=== PATIENT | female | born 1995 | race Caucasian/White ===

== ENCOUNTER 2016-02-22 04:36 | Inpatient (IN) ==
[~2016-02-22 04:36] MED LIST: Famotidine 20 MG/2 ML VIAL IVP PRN; Metoclopramide 10 MG/2 ML VIAL IVP PRN; Naloxone 0.4 MG/ML INJ IVP PRN
[2016-02-22] MEDS ORDERED: Penicillin G Potassium 5,000,000 UNIT in D5% in Water (Mini-Bag+) 100 ML IVPB ONE (04:38)
[2016-02-22] MEDS ORDERED: Ringers Solution, Lactated 1,000 ML ONE (04:41)
[2016-02-22] MEDS ORDERED: *HR* Nalbuphine 20 MG/ML AMPUL IVP PRN (04:41)
[2016-02-22] MEDS ORDERED: Ringers Solution, Lactated 1,000 ML IVC SCH (04:45)
[2016-02-22 04:46] LABS: Basophils # 0.1 K/mcL (0.0-0.2); Basophils % 0.3 %; Eosinophils # 0.2 K/mcL (0.0-0.6); Eosinophils % 1.1 %; Hematocrit 38.2 % (35.3-44.9); Hemoglobin 12.7 g/dL (11.5-15.4); Immature Granulocytes % 0.5 % (0-4); Lymphocytes # 2.5 K/mcL (0.6-4.6); Mean Corpuscular HGB Conc 33.2 g/dL (31.6-35.5); Mean Corpuscular Hemoglobin 27.8 pg (28.0-33.3); Mean Corpuscular Volume 83.6 fL (83.0-100.0); Mean Platelet Volume 10.8 fL (9.4-12.4); Monocytes # 0.6 K/mcL (0.0-1.3); Monocytes % 3.3 %; Neutrophils # 14.6 K/mcL (1.6-8.9); Platelet Count 265 K/mcL (140-400); Red Blood Count 4.57 M/mcL (3.82-4.97); Red Cell Distribution Width 13.8 % (11.5-14.5); Segmented Neutrophils % 80.8 %
[2016-02-22] MEDS ORDERED: Bupivacaine-MPF 0.25% 10 ML VIAL EP ONE (05:23)
[2016-02-22] MEDS ORDERED: *HR* FentaNYL (PF) 100 MCG/2 ML VIAL EP ONE (05:23)
[2016-02-22] MEDS ORDERED: *HR* FentaNYL (PF) 100 MCG/2 ML VIAL ONE (05:25)
[2016-02-22] MEDS ORDERED: Epidural Premix (fent/bupiv) 110 ML EP ONE (05:25)
[2016-02-22] MEDS ORDERED: Bupivacaine-MPF 0.25% 10 ML VIAL ONE (05:25)
[2016-02-22] MEDS ORDERED: Epidural Premix (fent/bupiv) 110 ML EP SCH (05:30)
--- NOTE | 2016-02-22 05:58 | Anesthesia Evaluation PreOp ---
Date of Encounter: 02/22/16 Time of Encounter: 05:25 - Past History Planned Operation: labor epidural Cardiac History: HTN (with ) Pulmonary History: Smoker (2ppd) CONFIGURATION TECHNICIAN History: Denies Any Significant HX Other Medical History: Other (pbesity) Anesthesia History: No Prior Anesthetic Complications, Past Anesthesia (lap kavita) : Yes Alcohol Use: none Drug use: none Medications and Allergies No Known Home Drugs 02/22/16 [History] Allergies No Known Allergies Allergy (Verified 02/22/16 03:52) - Meds/Allergy Pre-op Review Medications Reviewed: Yes Allergies Reviewed: Yes Beta Blockers on Current Med List: No Anesthesia Results - Labs 02/22/16 04:30 Anesthesia Exam 3 Vital Signs Time 0525 0530 0535 0540 0545 0550 BP 126/74 132/92 129/66 140/79 135/60 135/69 Pulse 79 80 66 81 71 67 FHTs 130 130 130 130 130 130 Height: 5'9" Weight: 130 NPO (# of Hours): 6 Pain Scale: 10 Pain Scale Used: Numeric (1 - 10) - HEENT Pupil (Motor): Pupils equal Mallampati: III Teeth: Normal Oral Opening: Greater than 3 - CONFIGURATION TECHNICIAN LOC: Oriented CONFIGURATION TECHNICIAN Motor: Normal RUE, Normal LUE, Normal RLE, Normal LLE, Normal Face CONFIGURATION TECHNICIAN Sensory: Normal: RUE, LUE, RLE, LLE, Face - Cardiac Rhythm: Regular Murmur: None - Pulmonary Breath Sounds: bilateral Clear Respiratory Effort: Symmetrical Anesthesia Assess/Plan ASA Score: 2, 3 Modified [place] Scale for Level of Consciousness: Cooperative, oriented, and tranquil Anesthetic Plan: Regional Monitoring Plan: Standard Monitors
--- NOTE | 2016-02-22 06:05 | Anesthesia Procedures ---
Date of Encounter: 02/22/16 Time of Encounter: 05:25 Procedures: Anesthesia - Epidural/Spinal Patient ID/Chart reviewed: Yes Patient examined: Yes OB Eval: Gestational age: 40 OB Eval: : 2 OB Eval: Hx Para: 1 OB Eval: Dilated at (cm): 6 OB Eval: Contractions: Non-stressed pattern Consent Obtained: Yes Supplemental Oxygen: None/Room Air Site Prep: Aseptic Technique, Sterile prep and drape, Povidone-Iodine 1% Patient position: upright Local Anesthetic: Lidocaine 1% Amount of Local Anesthetic used: 3 Touhy Needle Gauge: 18 Touhy Needle Depth (cm): 6 Catheter Depth at Skin (cm): 15 Test Dose (1.5% Lido + Epi): Volume given (mls): 3 Test Dose Result: Negative Loading Dose: 0.25% Marcaine (mls): 8 Loading Dose: Fentanyl (mcg): 100 Loading Dose Administered: Thru Catheter Infusion Med: 0.125% Bupivacaine w/ 2 mcg/ml Fentanyl Infusion Rate (mls/hr): [address]: Tegaderm, Tape Interspace Used: L3-L4 Loss of Resistance (KHOI): Yes Blood: No CSF: No Paresthesia: No Vitals + FHT's: 3 Vital Signs Time 0525 0530 0535 0540 0545 0550 BP 124/76 132/92 129/66 140/79 135/60 135/69 Pulse 79 80 66 8 71 67 FHTs 130 130 130 130 130 130
--- NOTE | 2016-02-22 06:27 | OB/GYN History & Physical ---
Date of Encounter: 02/22/16 Time of Encounter: 06:26 Assessment and Plan (1) 40 weeks gestation of Current visit: Yes Status: Acute In active labor, PNC elsewhere, records obtained and reviewed (2) GBS (group B Streptococcus carrier), +RV culture, currently Current visit: Yes Status: Acute GBS prophylaxis (3) Obesity affecting in third trimester Current visit: Yes Status: Acute History of Present Illness Chief complaint: 40 wk IUP HPI: Ms. Leal is a 20 year old female 011, EDC 02/22/16 with care through [facility]. The patient presents to labor and delivery at 40 weeks complaining of contractions. No loss of fluid. She denies any vaginal bleeding. Her has been complicated by maternal obesity and she is positive for GBS. She is HSV type I, smoker with a history of hypertension and spontaneous . Blood type is O+, rubella immune Past Med Surg Social Fam HX - Past Medical History Source: patient, old records reviewed Medical history: asthma, hypertension Psychiatric history: bipolar - Past Surgical History Surgical History: cholecystectomy - Social History Smoking Status: Current every day smoker Packs per day: 2 Smokeless Tobacco Status: No Alcohol use: none Drug use: none - Family History Mother Adopted: No Family Member Ethnicity: Non- Living Status: Hx Family Cardiac Disorders: Yes Hx Family Respiratory Disorders: No Hx Family Cancer: No Hx Family GI Disorders: No Hx Family Endocrine Disorder: No Hx Family Neuromuscular Disorders: No Hx Family Neurologic Disorders: No Hx Family HEENT Disorders: No Hx Family Autoimmune Disorders: No Hx Family Medical Disorders: Yes (Seizures) Obstetrical History - Pregnancies : 3 Term: 1 Ab's: 1 Livin Medications and Allergies No Known Home Drugs 02/22/16 [History] Allergies No Known Allergies Allergy (Verified 02/22/16 03:52) Review of System OB All systems PM: reviewed and no additional remarkable complaints except as stated - Constitutional Constitutional ROS IM: weight gain Exam - Vital Signs Vital signs: Afeb, VSS - Constitutional Constitutional: well developed, well nourished, no acute distress, obese - HEENT HEENT: Normocephaly - Neck Neck exam: normal inspection, supple - Lungs Respiratory exam: CTAB (wheezes which cleared) - Cardiovascular Cardiovascular exam: RRR - Abdomen Abdomen: Present: bowel sounds normal, gravid, non tender - Extremities Extremities exam: pedal edema, warm Deep Tendon Reflex Grade: 2+ Normal - Vulva Vulva: bilateral: normal - Vagina Vagina: Present: normal moisture - Cervix Dilation: 6 Effacement: 100 Station: -1 - Anus/Rectum Anus/Rectum: Present: normal perianal skin Results Result Diagrams: 02/22/16 04:30 Abnormal lab results WBC 18.1 K/mcL (4.3-11.1) H 02/22/16 04:30 MCH 27.8 pg (28.0-33.3) L 02/22/16 04:30 Neutrophils # 14.6 K/mcL (1.6-8.9) H 02/22/16 04:30 All other labs normal. - VTE Reasons for not Prescribing Prophylaxis: Treatment not Indicated - Low risk for VTE
--- NOTE | 2016-02-22 07:51 | OB Labor Progress Note ---
Date of Encounter: 02/22/16 Time of Encounter: 07:45 Labor Progress Note - Subjective Subjective: patient comfortable with epidural feeling a little bit of pressure no pain - Cervix Cervix: complete/100/+2 AROM clear fluid - Heart Tones Heart Tones: FHT's 140's reactive - [place]: contractions every 2 min - Plan Plan: anticipate
[2016-02-22] MEDS ORDERED: Penicillin G Potassium 2,500,000 UNIT in D5% in Water 100 ML IVPB SCH (08:00)
[2016-02-22] MEDS ORDERED: Oxytocin 20 units/ LR 1000 mL 20 UNIT/1,000 ML BAG IVC ONE ×2 (08:24→11:06)
--- NOTE | 2016-02-22 08:55 | OB/GYN Procedure Note ---
Delivery - Delivery Date: 02/22/16 Provider: Daniel Santa Intrapartum events: none Delivery induction: none Delivery augmentation: rupture of membranes Delivery monitor: external FHT, external uterine Anesthesia: epidural Estimated Blood Loss: 100 - (s) Infant A Delivery Date: 02/22/16 Delivery Time: 08:25 Presentation: vertex Position: CECELIA Route of delivery: Gender: Male Viability: Viable Pounds: 7 Ounces: 0 Weight Gram: 3.185 kg at 1 minute: 8 at 5 mins: 9 Shoulder Dystocia: not encountered Specimens collected: cord blood Placenta: spontaneous - Repair Episiotomy: none Laceration Description: Periurethral (bilaterally), Vaginal (bilaterally) - Complications Delivery comments: Patient is a 20-year-old 011 at 40-0/7 weeks who presented to labor and delivery in active labor. Patient has care at another facility but lives in town. Patient started sukh came to the hospital was noted to be advanced dilation in active labor. Patient did receive an epidural patient has a history GBS positive antibiotics were started. Patient progressed to complete bulging membranes. It is been over 4 hours she was artificially ruptured clear fluid noted. Within 20 minutes patient started pushing pushed twice delivering a viable male infant in right occiput anterior presentation at 0825. There was a nuchal cord 1 loose and reduced there was no meconium. was bulb suctioned on the abdomen. Apgars were 8 at 1 minute, 9 at 5 minutes, infant weight was 7 pounds her ounces. Placenta was then delivered spontaneously with a three-vessel cord, email manager Dr. Santa, assistant film editor [facility] PGY3, anesthesia epidural, estimated blood loss 100 mL, patient had bilateral periurethral lacerations and bilateral vaginal lacerations repaired with 3-0 Vicryl in usual fashion. Cervix and vagina was visualized intact. She will be observed 2 hours before being taken floor. - Disposition Mom disposition: stable in LDR [place] disposition: stable in LDR
[2016-02-22] MEDS ORDERED: Rho Immune Globulin 1,500 UNIT SYRINGE IM PRN (11:06)
[2016-02-22] MEDS ORDERED: Oxytocin 20 units/ LR 1000 mL 20 UNIT/1,000 ML BAG IV SCH (11:06)
[2016-02-22] MEDS ORDERED: Acetaminophen 325 MG TABLET PO PRN (11:06)
[2016-02-22] MEDS ORDERED: Prenatal Vit/FA 1 EACH TABLET PO SCH (11:06)
[2016-02-22] MEDS ORDERED: Measles/Mumps/Rubella Vacc 0.5 ML VIAL SQ PRN (11:06)
[2016-02-22] MEDS: Ibuprofen 600 MG TABLET PO PRN (20:45)
[2016-02-23] MEDS: Ibuprofen 600 MG TABLET PO PRN (03:16)
[2016-02-23 06:52] LABS: Basophils # 0.1 K/mcL (0.0-0.2); Basophils % 0.5 %; Eosinophils # 0.2 K/mcL (0.0-0.6); Eosinophils % 1.4 %; Hematocrit 31.9 % (35.3-44.9); Immature Granulocytes % 0.5 % (0-4); Lymphocytes % 31.6 %; Mean Corpuscular HGB Conc 32.6 g/dL (31.6-35.5); Mean Corpuscular Volume 85.8 fL (83.0-100.0); Mean Platelet Volume 11.1 fL (9.4-12.4); Monocytes # 0.6 K/mcL (0.0-1.3); Monocytes % 4.5 %; Neutrophils # 7.7 K/mcL (1.6-8.9); Platelet Count 188 K/mcL (140-400); Red Blood Count 3.72 M/mcL (3.82-4.97); Segmented Neutrophils % 61.5 %
[2016-02-23 06:54] LABS: Hemoglobin 10.4 g/dL (11.5-15.4)
[2016-02-23 09:22] VITALS: BP 124/78
--- NOTE | 2016-02-23 09:25 | Discharge Summary ---
Date of Encounter: 02/23/16 Time of Encounter: 09:23 - Discharge Diagnosis (1) (normal spontaneous vaginal delivery) Priority: Primary Status: Acute Comments: Pt meeting milestones. (2) Obesity (BMI 30.0-34.9) Priority: Secondary Status: Acute - Discharge Medications Prescriptions: Ibuprofen [Motrin] 600 mg PO Q6HR PRN #60 tablet PRN Reason: Cramping Docusate [Colace] 100 mg PO BID #60 capsule Home Medications: Docusate [Colace] 100 mg PO BID #60 capsule 02/23/16 [Rx] Ibuprofen [Motrin] 600 mg PO Q6HR PRN #60 tablet 02/23/16 [Rx] Allergies/Adverse Reactions: Allergies No Known Allergies Allergy (Verified 02/22/16 03:52) Data Procedures and tests throughout hospitalization: Laboratory Tests 02/22/16 02/23/16 04:30 06:15 WBC 18.1 H 12.5 H RBC 4.57 3.72 L Hgb 12.7 10.4 L D Hct 38.2 31.9 L MCV 83.6 85.8 MCH 27.8 L 28.0 MCHC 33.2 32.6 RDW 13.8 14.0 Plt Count 265 188 MPV 10.8 11.1 Immature Gran % 0.5 0.5 Seg Neutrophils % 80.8 61.5 Lymphocytes % 14.0 31.6 Monocytes % 3.3 4.5 Eosinophils % 1.1 1.4 Basophils % 0.3 0.5 Neutrophils # 14.6 H 7.7 Lymphocytes # 2.5 4.0 Monocytes # 0.6 0.6 Eosinophils # 0.2 0.2 Basophils # 0.1 0.1 Labs on day of discharge: Labs from last 24 hours 02/23/16 06:15 WBC 12.5 H RBC 3.72 L Hgb 10.4 L D Hct 31.9 L MCV 85.8 MCH 28.0 MCHC 32.6 RDW 14.0 Plt Count 188 MPV 11.1 Immature Gran % 0.5 Seg Neutrophils % 61.5 Lymphocytes % 31.6 Monocytes % 4.5 Eosinophils % 1.4 Basophils % 0.5 Neutrophils # 7.7 Lymphocytes # 4.0 Monocytes # 0.6 Eosinophils # 0.2 Basophils # 0.1 Date of admission: 02/22/16 04:36 Consults: 02/22/16 11:06 Consult to Train Control Electronic Technician [CONS] Routine Comment: Vaginal delivery, consult needed Consult to Advanced Research Programs Director [CONS] Routine Reason for SW Consult: late care and care at another facility 02/22/16 19:35 Consult to Advanced Research Programs Director (W&C) [CONS] Routine Reason For Exam: Reason for SW Consult: anger, bipolar Discharging clinician: Kathy Lowry Anticipated date of discharge: 02/23/16 - Patient Status Disposition: Home, Self-Care Condition: Good Functional capacity at discharge: independent ambulation Overall status at discharge: patient is progressing back to baseline - Discharge Instructions Follow Up With: Ellie Raza CNM [Advanced Practice Nurse] - - Diet and Activity Activity: increase activity as tolerated Diet: advance to your usual diet Hospital Course Reason for admission: active labor Delivery: Episiotomy: none Laceration: vaginal side wall, other (periurethral) Other procedures: none complications: none Discharge diagnosis: IUP at term delivered baby: male Hospital course: - Delivery Date: 02/22/16 Provider: Daniel Santa Intrapartum events: none Delivery induction: none Delivery augmentation: rupture of membranes Delivery monitor: external FHT, external uterine Anesthesia: epidural Estimated Blood Loss: 100 - (s) A Delivery Date: 02/22/16 Infant Delivery Time: 08:25 Presentation: vertex Position: CECELIA Route of delivery: Gender: Male Viability: Viable Pounds: 7 Ounces: 0 Weight Gram: 3.185 kg at 1 minute: 8 at 5 mins: 9 Shoulder Dystocia: not encountered Specimens collected: cord blood Placenta: spontaneous - Repair Episiotomy: none Laceration Description: Periurethral (bilaterally), Vaginal (bilaterally) - Disposition Mom disposition: stable in LDR [place] disposition: stable in LDR Time Attestation: Total time spent providing and/or coordinating discharge services: Time Spent: Less than 30 minutes Exam - Constitutional Vitals: Temp Pulse Resp BP Pulse Ox 97.8 F 75 16 124/78 97 02/23/16 08:20 02/23/16 08:20 02/23/16 08:20 02/23/16 08:20 02/23/16 08:20 General appearance IM: A&O X 3, pleasant, no acute distress - Respiratory Respiratory exam: Present: CTAB - Cardiovascular Cardiovascular exam IM: Present: RRR, +S1, +S2 - GI/Abdominal GI/Abdominal exam IM: soft, no peritoneal signs - Rectal Rectal exam: deferred - External exam: normal external exam Uterine Tone: Firm Uterus Position: 1 Finger Below Umbilicus - Extremities Exam Extremities exam IM: Present: normal inspection - Neurological Exam Neurological exam: normal gait, oriented X3 - Psychiatric Additional comments: reports stable mood, pt is known to have bipolar disorder.
== END 2016-02-23 10:45 | disposition home or self-care (01) | DRG 560 ==
LOC: 1NENULAB → 1NENUOBS 11:03
PROVIDERS: ADMIT Obstetrics & Gynecology; ATTEND Obstetrics & Gynecology

== ENCOUNTER 2017-11-10 16:10 | Observation (INO) ==
[2017-11-10] MEDS ORDERED: *HR* FentaNYL (PF) 100 MCG/2 ML VIAL IVP ONE ×2 (16:19→19:21)
--- NOTE | 2017-11-10 16:20 | Emergency Department Note ---
Disposition Clinical Impression: Missed , demise Disposition: Admitted As Inpatient Condition: Serious Referrals: NONE,PCP [Primary Care Provider] - Forms: Work/School Release, ED Satisfaction Letter Time of Disposition: 19:39 General Adult HPI - General Chief complaint: ED Abdominal Pain Stated complaint: Abdominal pain Time Seen by Provider: 11/10/17 16:12 Source: patient, EMS Mode of arrival: EMS Limitations: no limitations Nursing Notes Reviewed: Yes Vital Signs Reviewed: Yes - History of Present Illness HPI Narrative: 22-year-old female A1, arrives to the emergency department with complaint of suprapubic pain and vaginal bleeding. The patient states that she had a positive test on 09/10/2017. The patient states that she has had a menstrual periods since then. The patient states that she began experiencing some suprapubic tenderness last night that was midline also vaginal bleeding. The patient went to [facility] emergency department where she was evaluated. She had bedside ultrasound which revealed intrauterine material without heartbeat. The patient had an hCG quantitative level was 3100. Patient's urinalysis is unremarkable. The patient was advised to return to the emergency department immediately for symptoms worsen with concern for possible ectopic . The patient states that earlier today she was in the shower noted large amount of vaginal bleeding including blood clots. The patient decided to come to the emergency department for evaluation. The patient denies any other complaints at this time. She is very uncomfortable on examination. - Related Data Home Medications Medication Instructions Recorded Confirmed No Known Home Drugs 11/09/17 11/10/17 Allergies Allergy/AdvReac Type Severity Reaction Status Date / Time ibuprofen Allergy Rash Verified 11/09/17 22:42 All systems ED: reviewed and negative except as stated. Constitutional: Denies: fever, chills, weakness ENT ED: Denies: congestion Cardiovascular: Denies: chest pain Respiratory: Denies: dyspnea Gastrointestinal: Reports: abdominal pain. Denies: nausea, vomiting, diarrhea, constipation, hematemesis, melena, hematochezia Genitourinary: Reports: discharge, abnormal menses. Denies: urgency, dysuria, frequency, hematuria Musculoskeletal: Denies: back pain, neck pain Integumentary: Denies: rash Neurological: Denies: headache Past Medical History - Past Medical History Attestation: Yes The following information was validated with the patient. Source: patient, old records reviewed Medical history: Reports: non-contributory Surgical history: Reports: cholecystectomy Psychiatric history: Reports: no psych history [employer]RE[employer] history: Reports: spontaneous : 4 Para: 2 Ab: 1 LMP comments: - Social History Smoking Status: Current every day smoker Smokeless Tobacco Status: No Alcohol use: Reports: none Drug use: Reports: none Physical Exam - General Limitations: no limitations General appearance: alert, in distress (Due to pain) - Head Head exam: atraumatic, normocephalic, normal inspection - Eye Eye exam: Present: normal appearance, PERRL, EOMI - ENT ENT exam: normal exam, normal oropharynx, mucous membranes moist - Neck Neck exam: Present: normal inspection, full ROM, trachea midline - Chest Chest inspection: Present: normal inspection, symmetric chest wall rise - Respiratory Respiratory exam: Present: normal lung sounds bilaterally - Cardiovascular Cardiovascular exam: Present: regular rate, normal rhythm, normal heart sounds - Abdominal Exam Abdominal exam: Present: soft, tenderness (Diffuse). Absent: distention, guarding, rebound, rigidity, hernia - Female Makeup Instructor present during exam: Yes External Exam: Present: bleeding Speculum Exam: Present: vaginal bleeding, other (Cervix was not visualized secondary to body habitus. No tissue noted in vaginal vault) - Extremities Exam Extremities exam: Present: normal inspection, full ROM. Absent: tenderness, pedal edema - Neurological Exam Neurological exam: Present: alert, oriented X3 - Skin Skin exam: Present: warm, dry, intact, normal color Course - Reevaluation(s) Reevaluation #1: Patient noted to be mildly hypotensive. She is fluid responsive. The patient had a ultrasound which revealed no heart rate within the 11 week 2 day fetus noted in the uterus. A consultation was placed to Dr. Thomason in [employer] [employer] who will see the patient and likely take the patient for a D&C. The patient was made aware of likely demise and miscarriage. No further questions at this time. Time: 18:16 Vital Signs Temperature 98.1 F 11/10/17 16:23 Pulse Rate 75 11/10/17 16:23 Respiratory Rate 17 11/10/17 16:23 Blood Pressure 90/69 11/10/17 16:23 O2 Sat by Pulse Oximetry 100 11/10/17 16:23 Temperature 98.1 F 11/10/17 16:23 Pulse Rate 78 11/10/17 19:15 Respiratory Rate 20 11/10/17 19:15 Blood Pressure 121/76 11/10/17 19:15 O2 Sat by Pulse Oximetry 97 11/10/17 19:15 Oxygen Delivery Oxygen Delivery Room Air Medical Decision Making - MDM Narrative Medical decision making narrative: Patient noted to have demise at 11 weeks and 2 days without heart rate. The patient was administered two L IVF in the ED. the patient case was discussed with Dr. Hoffman in line helper who will take the patient to the OR for a D&C. Patient has fluid responsive hypotension with normal Hgb. Patient agrees to plan. No further questions noted. - Lab Data Lab results reviewed: Yes I reviewed the patient's lab results. Result diagrams: 11/10/17 16:18 11/10/17 16:18 Lab Results 11/10/17 11/10/17 11/10/17 Range/Units 15:04 16:18 16:18 WBC 13.7 H (4.3-11.1) K/mcL RBC 4.40 (3.82-4.97) M/mcL Hgb 12.2 (11.5-15.4) g/dL Hct 38.1 (35.3-44.9) % MCV 86.6 (83.0-100.0) fL MCH 27.7 L (28.0-33.3) pg MCHC 32.0 (31.6-35.5) g/dL RDW 13.6 (11.5-14.5) % Plt Count 218 (140-400) K/mcL MPV 10.4 (9.4-12.4) fL Immature Gran % 0.4 (0-4) % Seg Neutrophils % 72.3 % Lymphocytes % 20.9 % Monocytes % 3.9 % Eosinophils % 2.2 % Basophils % 0.3 % Neutrophils # 9.9 H (1.6-8.9) K/mcL Lymphocytes # 2.9 (0.6-4.6) K/mcL Monocytes # 0.5 (0.0-1.3) K/mcL Eosinophils # 0.3 (0.0-0.6) K/mcL Basophils # 0.0 (0.0-0.2) K/mcL Sodium 138 (136-145) mEq/L Potassium 3.5 (3.5-5.1) mEq/L Chloride 108 H (98-107) mEq/L Carbon Dioxide 23 (23-29) mEq/L BUN 7 (6-20) mg/dL Creatinine 0.41 L (0.60-1.20) mg/dL Est GFR ( Amer) > 60 (> 60) Est GFR (Non-Af Amer) > 60 (> 60) BUN/Creatinine Ratio 17 (6-26) Glucose 90 (70-105) mg/dL Calculated Osmolality 284 (280-300) Calcium 9.0 (8.6-10.3) mg/dL Beta HCG, Quant 2054 H (Less than 5) mIU/mL Blood Type O POSITIVE Antibody Screen NEGATIVE - Radiology Data Radiology results reviewed: Yes I reviewed the patient's radiology results.
[2017-11-10] MEDS: 0.9 % Sodium Chloride 1,000 ML IVC ONE ×2 (16:27→18:19)
--- NOTE | 2017-11-10 17:20 | Emergency Department Note ---
Disposition Clinical Impression: Missed , demise Disposition: Admitted As Inpatient Condition: Serious Referrals: NONE,PCP [Primary Care Provider] - Forms: ED Satisfaction Letter, Work/School Release General Adult HPI - General Chief complaint: ED Vaginal Bleeding Stated complaint: Abdominal pain Time Seen by Provider: 11/10/17 16:12 Source: patient, EMS Mode of arrival: EMS Limitations: no limitations - History of Present Illness Pain Scale: 5 - Related Data Home Medications Medication Instructions Recorded Confirmed No Known Home Drugs 11/09/17 11/10/17 Allergies Allergy/AdvReac Type Severity Reaction Status Date / Time ibuprofen Allergy Rash Verified 11/09/17 22:42 Constitutional: Denies: fever, chills, weakness ENT ED: Denies: congestion Cardiovascular: Denies: chest pain Respiratory: Denies: dyspnea Gastrointestinal: Reports: abdominal pain. Denies: nausea, vomiting, diarrhea, constipation, hematemesis, melena, hematochezia Genitourinary: Reports: discharge, abnormal menses. Denies: urgency, dysuria, frequency, hematuria Musculoskeletal: Denies: back pain, neck pain Integumentary: Denies: rash Neurological: Denies: headache Past Medical History - Past Medical History Medical history: Reports: non-contributory Surgical history: Reports: cholecystectomy Psychiatric history: Reports: no psych history FRONT OFFICE ASSISTANT history: Reports: spontaneous : 4 Para: 2 Ab: 1 - Social History Smoking Status: Current every day smoker Smokeless Tobacco Status: No Alcohol use: Reports: none Drug use: Reports: none Physical Exam - General Limitations: no limitations General appearance: alert, in distress (Due to pain) Course Vital Signs Temperature 98.1 F 11/10/17 16:23 Pulse Rate 75 11/10/17 16:23 Respiratory Rate 17 11/10/17 16:23 Blood Pressure 90/69 11/10/17 16:23 O2 Sat by Pulse Oximetry 100 11/10/17 16:23 Temperature 98.1 F 11/10/17 16:23 Pulse Rate 78 11/10/17 19:15 Respiratory Rate 18 11/10/17 20:21 Blood Pressure 151/89 11/10/17 20:21 O2 Sat by Pulse Oximetry 97 11/10/17 19:15 Oxygen Delivery Oxygen Delivery Room Air Medical Decision Making - Lab Data Result diagrams: 11/10/17 16:18 11/10/17 16:18 Lab Results 11/10/17 11/10/17 11/10/17 Range/Units 15:04 16:18 16:18 WBC 13.7 H (4.3-11.1) K/mcL RBC 4.40 (3.82-4.97) M/mcL Hgb 12.2 (11.5-15.4) g/dL Hct 38.1 (35.3-44.9) % MCV 86.6 (83.0-100.0) fL MCH 27.7 L (28.0-33.3) pg MCHC 32.0 (31.6-35.5) g/dL RDW 13.6 (11.5-14.5) % Plt Count 218 (140-400) K/mcL MPV 10.4 (9.4-12.4) fL Immature Gran % 0.4 (0-4) % Seg Neutrophils % 72.3 % Lymphocytes % 20.9 % Monocytes % 3.9 % Eosinophils % 2.2 % Basophils % 0.3 % Neutrophils # 9.9 H (1.6-8.9) K/mcL Lymphocytes # 2.9 (0.6-4.6) K/mcL Monocytes # 0.5 (0.0-1.3) K/mcL Eosinophils # 0.3 (0.0-0.6) K/mcL Basophils # 0.0 (0.0-0.2) K/mcL Sodium 138 (136-145) mEq/L Potassium 3.5 (3.5-5.1) mEq/L Chloride 108 H (98-107) mEq/L Carbon Dioxide 23 (23-29) mEq/L BUN 7 (6-20) mg/dL Creatinine 0.41 L (0.60-1.20) mg/dL Est GFR ( Amer) > 60 (> 60) Est GFR (Non-Af Amer) > 60 (> 60) BUN/Creatinine Ratio 17 (6-26) Glucose 90 (70-105) mg/dL Calculated Osmolality 284 (280-300) Calcium 9.0 (8.6-10.3) mg/dL Beta HCG, Quant 2054 H (Less than 5) mIU/mL Blood Type O POSITIVE Antibody Screen NEGATIVE Attestation Statement - Attestation Attestation: Resident Attestation: I examined this patient and my medical decision making was reviewed with the Resident Physician. I agree with the documented findings, disposition and treatment plan as described except to the extent set forth below. We independently had [id number] contact with the patient. Patient presents today for evaluation of abdominal pain and vaginal bleeding. The patient had positive test. Unsure of last known menstrual period. The patient had a evaluation yesterday at [facility] with a beta Quant of 3000. Bedside ultrasound without any significant abnormality was documented at that time. The patient was told to return if symptoms worsen. Patient has had worsening bleeding as well as abdominal pain. Beta Quant is continuing to down trend. Pelvic ultrasound shows a nonviable fetus at 11 weeks. The patient was evaluated by OB within the emergency department. Patient has been taken by the OB service for admission for likely D&C. Patient did have an episode of hypotension within the emergency department with a systolic blood pressure of 90. She received IV fluids and her blood pressure stabilized with repeat blood pressure of 128 systolic. She was not significant and tachycardic. Awake alert and oriented 3, mild distress secondary to abdominal pain, abdomen soft with mild generalized tenderness without rebound or guarding. Please see resident note further details and disposition.
[2017-11-10 17:21] LABS: Basophils % 0.3 %; Eosinophils # 0.3 K/mcL (0.0-0.6); Eosinophils % 2.2 %; Hematocrit 38.1 % (35.3-44.9); Hemoglobin 12.2 g/dL (11.5-15.4); Immature Granulocytes % 0.4 % (0-4); Lymphocytes # 2.9 K/mcL (0.6-4.6); Lymphocytes % 20.9 %; Mean Corpuscular Hemoglobin 27.7 pg (28.0-33.3); Mean Corpuscular Volume 86.6 fL (83.0-100.0); Mean Platelet Volume 10.4 fL (9.4-12.4); Monocytes # 0.5 K/mcL (0.0-1.3); Monocytes % 3.9 %; Neutrophils # 9.9 K/mcL (1.6-8.9); Platelet Count 218 K/mcL (140-400); Red Cell Distribution Width 13.6 % (11.5-14.5); Segmented Neutrophils % 72.3 %
[2017-11-10] MEDS ORDERED: 0.9 % Sodium Chloride 1,000 ML ONE (17:47)
[2017-11-10 17:50] LABS: BUN/Creatinine Ratio 17 (6-26); Blood Urea Nitrogen 7 mg/dL (6-20); Carbon Dioxide 23 mEq/L (23-29); Chloride 108 mEq/L (98-107); Glucose 90 mg/dL (70-105); Osmolality,Calculated 284 (280-300); Potassium 3.5 mEq/L (3.5-5.1); Sodium 138 mEq/L (136-145); eGFR For Non-African Americans > 60 (> 60)
--- NOTE | 2017-11-10 19:04 | OB/GYN History & Physical ---
Date of Encounter: 11/10/17 Time of Encounter: 19:01 Assessment and Plan (1) demise before 20 weeks with retention of fetus Status: Acute A positive Pain management Plan for d&c given she has not yet passed products of conception History of Present Illness Chief complaint: vaginal bleeding HPI: Ms. Leal is a 22 year old female at 11wk 2day per US with history of HTN who presented to the ED with complaints of vaginal bleeding which started yesterday but worsened tonight. She was in the shower and soaked 3 pads within an hour and made the decision to come to the ED. Patient was seen yesterday at [place] [facility] with complaints of vaginal bleeding and abdominal pain. US there showed demise at 11 weeks 3 days. She was to follow up with OB but returned to the ED due to significant increase in bleeding overnight. She feels intermittently lightheaded. Denies CP, nausea, vomiting, diarrhea, shortness of breath, or chest pain. Last PO was noon today. Past Med Surg Social Fam HX - Past Medical History Medical history: non-contributory Additional medical history: overactive bladder Psychiatric history: no psych history - Past Surgical History Surgical History: cholecystectomy Additional surgical history: gallbladder, stents - Social History Smoking Status: Current every day smoker Packs per day: 0.5 Smokeless Tobacco Status: No Alcohol use: none Drug use: none - Family History Mother Adopted: No Family Member Ethnicity: Non- Living Status: Hx Family Cardiac Disorders: Yes Hx Family Respiratory Disorders: No Hx Family Cancer: No Hx Family GI Disorders: No Hx Family Endocrine Disorder: No Hx Family Neuromuscular Disorders: No Hx Family Neurologic Disorders: No Hx Family HEENT Disorders: No Hx Family Autoimmune Disorders: No Obstetrical History - Pregnancies : 4 Para: 2 Term: 2 : 0 Ab's: 1 Livin Medications and Allergies No Known Home Drugs 11/09/17 [History] 3 Allergy/AdvReac Type Severity Reaction Status Date / Time ibuprofen Allergy Rash Verified 11/09/17 22:42 Review of System OB All systems PM: reviewed and no additional remarkable complaints except as stated - Genitourinary Genitourinary: abnormal vaginal bleeding, pelvic pain Exam - Vital Signs Vital signs: Initial Vital Signs Temp Pulse Resp BP Pulse Ox 98.1 F 75 17 90/69 100 11/10/17 16:23 11/10/17 16:23 11/10/17 16:23 11/10/17 16:23 11/10/17 16:23 - Constitutional Constitutional: well developed, well nourished, no acute distress, mild distress , obese - HEENT HEENT: Normocephaly, Mucus Membranes Moist - Lungs Respiratory exam: CTAB - Cardiovascular Cardiovascular exam: RRR, +S1, +S2 - Abdomen Abdomen: Present: bowel sounds normal, diffuse tenderness - Vagina Vagina: Present: discharge (bleeding present at vulvar inspection) Results Result Diagrams: 11/10/17 16:18 11/10/17 16:18 Abnormal lab results WBC 13.7 K/mcL (4.3-11.1) H 11/10/17 16:18 MCH 27.7 pg (28.0-33.3) L 11/10/17 16:18 Neutrophils # 9.9 K/mcL (1.6-8.9) H 11/10/17 16:18 Chloride 108 mEq/L (98-107) H 11/10/17 16:18 Creatinine 0.41 mg/dL (0.60-1.20) L 11/10/17 16:18 Beta HCG, Quant 2054 mIU/mL (Less than 5) H 11/10/17 16:18 All other labs normal.
[2017-11-10] MEDS ORDERED: Ringers Solution, Lactated 1,000 ML IVC SCH ×2 (19:30→22:45)
[2017-11-10] MEDS ORDERED: Acetaminophen IV 1,000 MG/100 ML INFUS..BTL ONE (21:03)
[2017-11-10] MEDS ORDERED: Lidocaine -MPF 4% 5 ML AMPUL ONE (21:04)
[2017-11-10] MEDS ORDERED: Lidocaine -MPF 2% 2 ML VIAL ONE (21:04)
[2017-11-10] MEDS ORDERED: *HR* Midazolam HCl 5 MG/5 ML VIAL IVP ONE (21:05)
[2017-11-10] MEDS ORDERED: *HR* FentaNYL (PF) 100 MCG/2 ML VIAL ONE (21:05)
[2017-11-10] MEDS ORDERED: *HR* Propofol 200 MG/20 ML VIAL IVP ONE (21:05)
--- NOTE | 2017-11-10 21:15 | Anesthesia Evaluation PreOp ---
Date of Encounter: 11/10/17 Time of Encounter: 21:13 - Past History Planned Operation: D&C Cardiac History: HTN (supposed to be taking Lisinopril [intermittent compliance] ) Pulmonary History: Smoker (upto 3ppd until approximately 2 months ago), Snore, LESTER Dx (probable) BOWL SANDER History: Other (Anxiety/Depression/BiPolar,) Other Medical History: Denies Any Significant HX Anesthesia History: Past Anesthesia ([place]) Alcohol Use: none Drug use: none Medications and Allergies No Known Home Drugs 11/09/17 [History] 3 Allergy/AdvReac Type Severity Reaction Status Date / Time ibuprofen Allergy Rash Verified 11/09/17 22:42 - Meds/Allergy Pre-op Review Medications Reviewed: Yes Allergies Reviewed: Yes Beta Blockers on Current Med List: No Anesthesia Results - Labs 11/10/17 16:18 11/10/17 16:18 Laboratory Results Impressions Obstetrics Ultrasound 11/10/17 16:34 IMPRESSION: Single intrauterine gestational sac containing a pole measuring up to 4.49 cm in length with no evidence of cardiac activity. Findings are those of intrauterine demise. D/ / Young Huerta MD / Young Huerta MD Interpreting Provider: Young Huerta MD Laboratory Tests 11/10/17 16:18 Est GFR (Non-Af Amer) > 60 Beta HCG, Quant 2053 H - Imaging EKG: report reviewed (95bpm- - SINUS RHYTHM Electronically Signed On 09-11-2017 21:53:47 EDT by Maricel Felipe) Anesthesia Exam Vital Signs Temp Pulse Resp BP Pulse Ox 11/10/17 20:21 18 151/89 11/10/17 19:15 78 20 121/76 97 11/10/17 18:15 61 14 125/66 100 11/10/17 17:23 71 95/63 11/10/17 16:29 77 17 107/92 100 11/10/17 16:23 98.1 F 75 17 90/69 100 Intake and Output Patient Weight 11/10/17 23:59 Weight 132.948 kg Height: 5'0" Weight: 293# BMI = 43 NPO (# of Hours): MNOc - HEENT Pupil (Motor): Pupils equal, EOMI Mallampati: II Teeth: Normal Oral Opening: Greater than 3 - BOWL SANDER LOC: Oriented BOWL SANDER Motor: Normal RUE, Normal LUE, Normal RLE, Normal LLE, Normal Face BOWL SANDER Sensory: Normal: RUE, LUE, RLE, LLE, Face - Cardiac Rhythm: Regular Murmur: None - Pulmonary Breath Sounds: bilateral Clear Respiratory Effort: Symmetrical Anesthesia Assess/Plan ASA Score: 3 (MO/BMI = 43, HTN, BiPolar d/o) Modified Nayana Scale for Level of Consciousness: Cooperative, oriented, and tranquil Anesthetic Plan: General Monitoring Plan: Standard Monitors Recovery Plan: PACU Anes Supervising Prov Stmt: Pt seen/evaluated, R&B discussed, questions answered and consent obtained. See [place] MD
[2017-11-10] MEDS ORDERED: Methylergonovine 0.2 MG/ML AMPUL IM ONE (22:32)
[2017-11-10] MEDS ORDERED: Dexamethasone 4 MG/ML VIAL ONE ×2 (22:34→22:47)
[2017-11-10] MEDS ORDERED: Ondansetron 4 MG/2 ML VIAL ONE (22:34)
[2017-11-10] MEDS ORDERED: *HR* HYDROcodone/Acet 5/325 mg TABLET PO PRN (22:39)
--- NOTE | 2017-11-10 22:45 | OB/GYN Procedure Note ---
Suction D&C - Diagnosis Date of procedure: 11/10/17 Pre-op diagnosis: incomplete Post-op diagnosis: same - Procedure Procedure: suction D&C Surgeon: Richard Hoffman Was there an assistant administrator present: No Anesthesia Type: General Estimated blood loss (cc): 50 Complications: none Fluids: crystalloid Specimen: products of conception Disposition: PACU Narrative: Patient's a 22-year-old 4 para 2 female at 11 weeks gestation had been seen [facility] last evening diagnosed with missed . She did not had care during this confirming she was yesterday in the emergency room were ultrasound showed an 11 week 2 day pole with no cardiac activity. She was having light bleeding at that point was discharged home. She presented emergency room today after onset of heavy bleeding approximately 1400 with passage of large clots. An emergency room she was noted to have somewhat brisk bleeding initially she was somewhat tachycardic and weak. She did respond well to IV fluid hydration. She was still having significant bleeding and cramping ultrasound confirmed the she had not passed the pole and there is no cardiac activity and she did elect to have suction D&C. She was aware options as well as operative risks surgery and signed appropriate consent. While waiting did undergo surgery she did pass the fetus its entirety however continued to have cramping and bleeding desired to proceed with suction D&C. Description procedure: Patient was taken operating room where general anesthesia was administered. She is prepped draped in usual sterile fashion bladder was drained of clear urine. Cervix is visualized and grasped with single-tooth tenaculum. Cervix is dilated large size Hanks dilator. Form exam there was large placenta dilated to be intact in the vagina. This was removed using ring forceps. The a millimeter suction curet was passed multiple times to the cervix and the uterus and the uterine wall. To be smooth with minimal residual tissue or clot. Gentle sharp curettage was performed for quadrant uterine zambrano were noted to be 3 residual tissue with a smooth gritty contour. This point tenaculum was removed hemostasis was ensured patient was awakened taken recovery in good condition
--- NOTE | 2017-11-10 22:48 | Discharge Summary ---
Outpatient Proc Discharge Plan - Plan Prescriptions: HYDROcodone/Acet 5/325 mg [[place] 5-325 mg] 1 tab PO Q4HR PRN 7 Days #20 tablet PRN Reason: post op pain Home Medications: HYDROcodone/Acet 5/325 mg [[place] 5-325 mg] 1 tab PO Q4HR PRN 7 Days #20 tablet 11/10/17 [Rx] Forms (Work/Release): ED Satisfaction Letter, Work/School Release
--- NOTE | 2017-11-10 23:34 | Anesthesia Evaluation Post Op ---
Date of Encounter: 11/10/17 Time of Encounter: 23:33 - Vital Signs Vital Signs: Vital Signs/O2 Sat/Glucose, Most Current Temp Pulse Resp BP Pulse Ox 11/10/17 23:16 63 20 100 11/10/17 23:06 61 20 123/69 100 11/10/17 22:56 97.1 F L 86 18 101/74 100 11/10/17 20:21 18 151/89 - Lungs Lungs: Clear Ascult./Percussion - Airway Airway: Non-obstructed - Cardiovascular Regular Rate - Mental Status Mental Status: Alert & Oriented, Answers Appropriately - Pain Pain Scale: 1 Pain Scale used: Lopez-Delvalle (Faces) - Nausea Vomiting Nausea Vomiting: Not Present - Hydration Hydration: Ice chips, Has not voided - Discharge PostOp Status: Transfer Patient to floor Anes Supervising Prov Stmt: PT seen/evaluated, VSS and pt has met criteria for discharge to home. - MD Padmini
--- NOTE | 2017-11-11 08:35 | Discharge Summary ---
Date of Encounter: 11/11/17 Time of Encounter: 08:36 - Discharge Diagnosis (1) Incomplete Priority: Primary Status: Acute Comments: Doing well, without c/o. Minimal bleeding or pain. Will d/c home. (2) Incomplete Priority: Primary Status: Acute (3) with 11 completed weeks gestation Priority: Primary Status: Acute - Discharge Medications Home Medications: HYDROcodone/Acet 5/325 mg [[place] 5-325 mg] 1 tab PO Q4HR PRN 7 Days #20 tablet 11/10/17 [Rx] Allergies/Adverse Reactions: 3 Allergy/AdvReac Type Severity Reaction Status Date / Time ibuprofen Allergy Rash Verified 11/09/17 22:42 Data Procedures and tests throughout hospitalization: Laboratory Tests 11/10/17 11/10/17 11/10/17 15:04 16:18 16:18 WBC 13.7 H RBC 4.40 Hgb 12.2 Hct 38.1 MCV 86.6 MCH 27.7 L MCHC 32.0 RDW 13.6 Plt Count 218 MPV 10.4 Immature Gran % 0.4 Seg Neutrophils % 72.3 Lymphocytes % 20.9 Monocytes % 3.9 Eosinophils % 2.2 Basophils % 0.3 Neutrophils # 9.9 H Lymphocytes # 2.9 Monocytes # 0.5 Eosinophils # 0.3 Basophils # 0.0 Sodium 138 Potassium 3.5 Chloride 108 H Carbon Dioxide 23 BUN 7 Creatinine 0.41 L Est GFR ( Amer) > 60 Est GFR (Non-Af Amer) > 60 BUN/Creatinine Ratio 17 Glucose 90 Calculated Osmolality 284 Calcium 9.0 Beta HCG, Quant 2054 H Blood Type O POSITIVE Antibody Screen NEGATIVE Labs on day of discharge: Labs from last 24 hours 11/10/17 11/10/17 11/10/17 16:18 16:18 15:04 WBC 13.7 H RBC 4.40 Hgb 12.2 Hct 38.1 MCV 86.6 MCH 27.7 L MCHC 32.0 RDW 13.6 Plt Count 218 MPV 10.4 Immature Gran % 0.4 Seg Neutrophils % 72.3 Lymphocytes % 20.9 Monocytes % 3.9 Eosinophils % 2.2 Basophils % 0.3 Neutrophils # 9.9 H Lymphocytes # 2.9 Monocytes # 0.5 Eosinophils # 0.3 Basophils # 0.0 Sodium 138 Potassium 3.5 Chloride 108 H Carbon Dioxide 23 BUN 7 Creatinine 0.41 L Est GFR ( Amer) > 60 Est GFR (Non-Af Amer) > 60 BUN/Creatinine Ratio 17 Glucose 90 Calculated Osmolality 284 Calcium 9.0 Beta HCG, Quant 2053 H Blood Type O POSITIVE Antibody Screen NEGATIVE - Impressions ITS Impressions Obstetrics Ultrasound 11/10/17 16:34 IMPRESSION: Single intrauterine gestational sac containing a pole measuring up to 4.49 cm in length with no evidence of cardiac activity. Findings are those of intrauterine demise. D/ / Young Huerta MD / Young Huerta MD Interpreting Provider: Young Huerta MD Doing well, bleeding has stopped. Minimal pain. No other c/o. Date of admission: 11/11/17 07:04 Primary care physician: PCP NONE - Patient Status Disposition: Home, Self-Care Condition: Good Functional capacity at discharge: independent ambulation Overall status at discharge: patient is progressing back to baseline - Discharge Instructions Follow Up With: Richard Hoffman MD [Partnered Physician] - Forms: ED Satisfaction Letter, Work/School Release - Diet and Activity Activity: increase activity as tolerated Hospital Course [employer] Time Attestation: Total time spent providing and/or coordinating discharge services: Exam - Constitutional Vitals: Temp Pulse Resp BP Pulse Ox 97.6 F 76 20 120/71 97 11/11/17 03:00 11/11/17 03:00 11/11/17 03:00 11/11/17 03:00 11/11/17 03:00 General appearance IM: A&O X 3 - Respiratory Respiratory exam: Present: CTAB - Cardiovascular Cardiovascular exam IM: Present: RRR - GI/Abdominal GI/Abdominal exam IM: normal bowel sounds - Extremities Exam Extremities exam IM: Present: full ROM - Neurological Exam Neurological exam: oriented X3
[2017-11-11 08:43] VITALS: BP 138/92
== END 2017-11-11 11:11 | disposition home or self-care (01) ==
LOC: EMEROOARM 16:10 → 1NENUOBS 16:10 → EMEROOARM 20:32
PROVIDERS: ADMIT Obstetrics & Gynecology; ATTEND Emergency Medicine